=== PATIENT | female | born 1990 | race Caucasian/White ===

== ENCOUNTER → 2017-11-04 | Outpatient (REF) | payer OTHER | LOC: M LAB REF 10:23 | DX: J02.9 Acute pharyngitis, unspecified (principal) ==

== ENCOUNTER → 2018-05-23 | Outpatient (REF) | payer OTHER | LOC: M LAB REF 13:26 | DX: R30.0 Dysuria (principal) ==

== ENCOUNTER → 2019-04-05 | Outpatient (REF) | LOC: M LAB LCGH 15:42 | PROVIDERS: ATTEND Family Medicine | DX: O66.5 Attempted application of vacuum extractor and forceps (principal); Z3A.40 40 weeks gestation of pregnancy ==